=== PATIENT | male | born 1985 | race Caucasian/White ===

== ENCOUNTER 2018-06-14 09:00 | Emergency (ER) | payer OTHER ==
[~2018-06-14] VITALS: Ht 182.9 cm; Wt 89.8 kg
--- NOTE | 2018-06-14 09:10 | NUR ---
Patient ambulated with stable gait. A/Ox4. Speech is clear, speaks in complete sentences. No neuro deficits. Patient came in for c/o cough x3 days with clear phlegm. Patient has discomfort in chest due to congestion. No cardiovascular distress noted. No GI/ distress.
--- NOTE | 2018-06-14 09:23 | NUR ---
Patient discharged to home in stable conditon. Written and verbal after care instructions given. Patient verbalizes understanding of instructions. Patient ambulated with stable gait.
[2018-06-14 09:24] VITALS: BP 112/83
== END 2018-06-14 09:25 | disposition home or self-care (01) ==
LOC: ER 09:00
DX: J20.9 Acute bronchitis, unspecified (principal)
CPT/HCPCS: A4663